=== PATIENT | male | born 1980 | race Caucasian/White ===

== ENCOUNTER 2020-12-15 12:27 | Outpatient (CLI) | payer BC, SELFPAY ==
--- NOTE | ~2020-12-15 | XR_ITS ---
EXAMINATION: XR lg joint inject/asp add, XR lg joint inject/asp w image DATE: 12/15/2020 13:47 (accession [id number]), 12/15/2020 13:46 (accession [id number]) INDICATION: Bilateral hip osteoarthritis presenting with bilateral hip pain. TECHNIQUE: A time-out was performed to verify the patient's name, date of , and procedure to b e performed. The procedure including the risks, benefits, and alternatives was discussed with the pat ient. Risks discussed included bleeding and infection. The patient understood the risks and agreed to proceed. Attention was first turned to the right hip. The skin overlying the right hip joint was pre pped and draped in usual sterile fashion. Anesthetic was administered with 1% lidocaine subcutaneous ly. A 22 G needle was advanced under fluoroscopic guidance into the joint. Injection of 1 mL of Omn ipaque 240 confirmed intra-articular position of the needle. Subsequently, injectate consisting of 3 mm of a 2:1 mixture of 0.5% bupivacaine, 80 mg/mL Depo-Medrol for a total dose of 80 mg Depo-Medrol was instilled. Washout of contrast was seen confirming intra-articular administration. The needle was removed and the entry site was cleaned and dressed. Attention was then turned to the left hip joint. The skin overlying the left hip joint was prepped an d draped in usual sterile fashion. Anesthetic was administered with 1% lidocaine subcutaneously. A 22 G needle was advanced under fluoroscopic guidance into the joint. Injection of 1 mL of Omnipaque 240 confirmed intra-articular position of the needle. Subsequently, injectate consisting of 3 mm of a 2:1 mixture of 0.5% bupivacaine, 80 mg/mL Depo-Medrol for a total dose of 80 mg Depo-Medrol was ins tilled. Washout of contrast was seen confirming intra-articular administration. The needle was remove d and the entry site was cleaned and dressed. There were no immediate complications. Fluoroscopy ex posure time for the combined procedure was 0.1 minutes. Total DAP was 0.792 mGycm^2 . The total numbe r of images was 3. FINDINGS: Real-time fluoroscopy demonstrates the needle and contrast in the right hip joint and subse quently in the left hip joint. Patient's pain prior to procedure:10/10. Patient's pain following the procedure: 10/07. IMPRESSION: 1. Successful left hip joint injection of local anesthetic and steroid with decrease in the patient's presenting pain. 2. Successful right hip joint injection of local anesthetic and steroid with decrease in the patient' s presenting pain. Reviewed, dictated and finalized at location A. IMPRESSION: 1. Successful left hip joint injection of local anesthetic and steroid with dec rease in the patient's presenting pain. 2. Successful right hip joint injection of local anesthetic and steroid with de crease in the patient's presenting pain.
== END 2020-12-15 12:28 | disposition home or self-care (01) ==
LOC: ANHIMG 12:38
PROVIDERS: PCP Internal Medicine; Visit Provider Nurse Practitioner Family
DX: M16.0 Bilateral primary osteoarthritis of hip (principal)
CPT/HCPCS: 20610; 77002; J1040; Q9966

== ENCOUNTER 2024-02-10 13:35 | Outpatient (CLI) | payer OTHER, SELFPAY ==
--- NOTE | 2024-02-10 14:01 | ECG_ITS ---
Test Date: 2024-02-10 14:08:35 Measurements Intervals [place] Rate: 60 P: 0 MD: 146 QRS: 3 QRSD: 104 T: 11 QT: 408 QTc: 409 Interpretive Statements SINUS RHYTHM No previous ECG available for comparison Electronically Signed On 02-10-2024 14:42:37 CDT by David Vallejo M.D.
[2024-02-10 14:10] LABS: Basophils Percent Auto 0.5 % (0.2-1.2); Eosinophils Absolute Auto 0.4 K/mm3 (0-0.3); Eosinophils Percent Auto 6.1 % (0-4.4); Hematocrit 45.9 % (42.0-52.0); Hemoglobin 15.9 g/dL (14.0-18.0); Immature Granulocyte Absolute 0.06 K/mm3 (0.00-0.031); Lymphocytes Absolute Auto 1.13 K/mm3 (0.9-3.2); Lymphocytes Percent Auto 19.6 % (18.3-44.2); Mean Corpuscular HGB Conc 34.6 g/dl (32-36); Mean Corpuscular Hemoglobin 29.2 pg (26-34); Mean Corpuscular Volume 84.2 fl (80-100); Monocytes Absolute Auto 0.6 K/mm3 (0.1-0.6); Monocytes Percent Auto 9.9 % (2.6-8.5); Neutrophils Absolute Auto 3.6 K/mm3 (1.3-6.7); Neutrophils Percent Auto 62.9 % (45.5-73.1); Platelet Count Result 150 k/mm3 (150-375); Red Blood Count 5.45 M/mm3 (4.6-6.20); Red Cell Distribution Width 13.3 % (11.5-14.5); White Blood Count 5.8 K/mm3 (4.5-10.0)
[2024-02-10 14:14] LABS: Add Urine Microscopic? NO; Appearance Urine Clear (Clear); Bilirubin Urine Negative (Negative); Blood Urine Negative (Negative); Color Urine Yellow (Yellow); Glucose Urine UA Negative (Negative); Ketones Urine Negative (Negative); Leukocyte Esterase Ur Negative LEU/UL (Negative); Nitrate Urine Negative (Negative); Protein Urine Negative (Negative); Specific Grav Ur 1.026 (1.001-1.035); Urobilinogen Urine 0.2 mg/dL (<2.0); pH Urine 5.5 (5.0-9.0)
[2024-02-10 14:28] LABS: Anion Gap 9 mmol/L (4-12); Blood Urea Nitrogen 20 mg/dL (9-20); Calcium 8.7 mg/dL (8.4-10.2); Carbon Dioxide 29 mmol/L (22-30); Chloride 101 mmol/L (98-107); Estimated Glomerular Filt Rate > 60; Glucose 99 mg/dL (65-110); Potassium 3.8 mmol/L (3.4-5.0); Sodium 139 mmol/L (137-145)
== END 2024-02-10 13:36 | disposition home or self-care (01) ==
PROVIDERS: PCP Internal Medicine; Visit Provider Orthopaedic Surgery
DX: R53.83 Other fatigue (principal); M16.12 Unilateral primary osteoarthritis, left hip
CPT/HCPCS: 36415; 80048; 81003; 85025; 93005

== ENCOUNTER 2024-02-17 13:53 | Outpatient (CLI) | payer OTHER, SELFPAY ==
[2024-02-17 15:53] LABS: Prothrombin Time 13.3 Seconds (11.1-14.7)
[2024-02-17 15:54] LABS: Partial Thromboplastin Time 26.4 Seconds (22.3-36.8)
[2024-02-17 16:27] LABS: Urine Cotinine NEGATIVE
[2024-02-17 16:42] LABS: Albumin Level 4.3 g/dL (3.5-5.1)
[2024-02-17 16:53] LABS: MRSA (PCR) NOT DETECTED (NOT DETECTE)
[2024-02-17 17:00] LABS: Hemoglobin A1C 5.4 % (<5.7)
== END 2024-02-17 13:54 | disposition home or self-care (01) ==
PROVIDERS: PCP Internal Medicine; Visit Provider Orthopaedic Surgery
DX: M16.12 Unilateral primary osteoarthritis, left hip (principal); Z01.818 Encounter for other preprocedural examination
CPT/HCPCS: 80307; 82040; 83036; 85610; 85730; 87641

== ENCOUNTER 2024-03-03 01:33 | Day surgery (SDC) | payer OTHER, SELFPAY ==
--- NOTE | 2024-02-17 14:14 | PC.NURSE ---
Report to the Outpatient Waiting Room, entrance under the green pavilion located off [facility], at time __6:00AM on date ___03/03/24____. Planned Procedure Time: ___7:30AM . Time changes happen often and if your time is changed the preop area will call you the afternoon before. - You and your visitor will be asked to self-screen and do not enter if you have any COVID symptoms. - A mask is optional within the hospital at this time. Patients may have clear liquids (water, carbonated beverages, clear teas, apple juice) until 3 hours prior to surgery with a maximum of 20 ounces. - No food from midnight until time of surgery. Take the following medications with a SIP of water the morning of surgery: ____NONE DO NOT STOP ANY OF YOUR OTHER PRESCRIPTION MEDICATIONS PRIOR TO SURGERY ?EXCEPT THE FOLLOWING Medications to discontinue per physician ____HOLD MELOXICAM PER DR VELAZQUEZ Date to take last dose Please no make-up, nail telugu, hairspray, perfume, deodorant, or body powder the day of surgery. No jewelry (including any body piercings) or valuables the day of surgery, leave them at home. Please take a shower or bath the night before, or the morning of, surgery with an antibacterial soap. Wear comfortable, loose fitting clothing. - Jewelry must be removed prior to entering the operating room. Rings and piercings that are not removed may be cut off. - The hospital will not accept responsibility for valuables. - Please leave all valuables, including medications, at home the day of surgery. If you are going home after surgery, a licensed tow motor driver must drive you home. - NO public transportation without another adult if you receive anesthesia. - We recommend that an adult stay with you for 24 hours following discharge. - We also recommend that you do not drive, make important decision, drink alcoholic beverages, or take any drugs that were not prescribed by your health care provider for at least 24 hours after your discharge time. Follow any additional instructions given to you from your surgeon. If you or anyone in your household have experienced Covid symptoms in the past week, please notify your surgeon or the nurse liaison at the phone number below for possible testing. Telephone instructions given to ____PATIENT and asked if any additional questions and then verbalized understanding. Patient advised to call surgeon office or pre surgery nurse liaison [phone] if any additional questions.
[2024-02-17 14:21] VITALS: BP 141/88; PULSE 78; RESP 16; TEMP 36.7; O2SAT 95; BMI 33.0
[2024-03-03] VITALS (13 sets, daily range): BP systolic 106–151; BP diastolic 67–99; PULSE 70–83; RESP 10–20; TEMP 36.1–36.6; O2SAT 92–100; BMI 32.1
--- NOTE | ~2024-03-03 | XR_ITS ---
EXAMINATION: XR hip LT 1V DATE: 03/03/2024 11:54 INDICATION: Status post left hip arthroplasty TECHNIQUE: AP portable view of the left hip FINDINGS: There is a left total hip arthroplasty in expected position. Subcutaneous gas with soft ti ssue swelling are consistent with recent surgery. IMPRESSION: 1. Recent left total hip arthroplasty. Reviewed, dictated and finalized at location B.
[2024-03-03] MEDS: ACETAMINOPHEN 500 MG TABLET 1000 MG PO (06:34)
--- NOTE | 2024-03-03 06:46 | P.PNAN_ITS ---
Anes - Initial Pre Proc Eval Procedure: Operation Date: 03/03/24 07:30 Proposed Procedures p Left Total Hip Arthroplasty - Manpreet Rhodes MD Date/Time: 03/03/24 06:46 Surgeon: Manpreet Rhodes MD Pre Op Diagnosis: Left Hip osteoarthritis Patient Data Age: 43 Gender: M Height: 1.73 m Weight: 98.4 kg Last Vital Signs Temp 36.7 C 02/17/24 14:21 Pulse 78 02/17/24 14:21 Resp 16 02/17/24 14:21 BP 141/88 H 02/17/24 14:21 Pulse Ox 95 02/17/24 14:21 O2 Del Method Room Air 02/17/24 14:21 Allergies Allergy/AdvReac Type Severity Reaction Status Date / Time No Known Allergies Allergy Verified 03/03/24 06:39 Home Medications Medication Instructions Recorded Confirmed Type meloxicam 15 mg tablet 15 mg PO DAILY 11/30/20 02/17/24 History methocarbamol 500 mg tablet 500 mg PO HS 02/17/24 02/17/24 History chlorhexidine gluconate 4 % 1 applic topical ONCE #237 mL 02/18/24 03/03/24 Rx topical liquid (Hibiclens) Patient hx anesthesia problems: none Family hx anesthesia problems: none Results Review: All pre-operative results and documents have been reviewed as part of the pre- operative evaluation. 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 Surgical History Surgical History History of bunionectomy Family History Family History Other Carcinoma of colon Cerebrovascular accident Depression Heart disease Hypertension Social History Social History Smoking status: Never smoker Alcohol intake: current Drinks per week: 2 Alcohol use details: 3 per month Substance use: current Substance use type: marijuana Other substance usage details: MARIJUANA GUMMIES Living arrangements: alone Gender identity (if verbalized by the patient): Male Spiritual care concerns: No Anes - Eval Final PreProcedure Day of Procedure 03/03/24 06:46 Patient weight: obese Heart: regular rate and rhythm Lungs: clear to auscultation Airway: Mallampati scale class II Neurological: alert and oriented Last oral intake: >/= 8 hours ASA classification: II Emergent: no Anesthetic plan: proceed Anesthesia type and monitoring: general ETT and standard monitoring Results Review: All pre-operative results and documents have been reviewed as part of the pre- operative evaluation. Informed Consent: The patient's anesthetic plan and its attendant risks and benefits were discussed with the patient/family/POA. Questions were solicited and answers provided to the satisfaction of the patient/family/POA.
[2024-03-03] MEDS: TRANEXAMIC ACID 1,000MG/ISO100 1,000 MG/100 ML BAG 200 MG IVPB (07:00)
[2024-03-03] MEDS: LACTATED RINGERS 1,000 ML 30 ML IV CONT ×2 (07:17→11:23)
--- NOTE | 2024-03-03 07:19 | WPDHPUPDATE1 ---
History and Physical Update Update Date/Time: 03/03/24 07:19 History and Physical has been reviewed, including an updated exam of the patient. There are NO changes in the patient's condition. Risks, benefits, and alternatives have been discussed and questions answered. Patient agrees to proceed with procedure.
[2024-03-03] MEDS: ceFAZolin 2 GM/D5W 50 ML 2 GM/50 ML BAG IVPB ×2 (07:41→17:40)
[2024-03-03] MEDS: SODIUM CHLORIDE 0.9% IV 37.7 ML, MORPHINE SULFATE INJ (*CRX) 2 MG, ROPivacaine HCL 1% 2... INFILTRATE (08:43)
[2024-03-03] MEDS: TRANEXAMIC ACID 1,000 MG/10 ML AMPUL 1000 MG IV PUSH (10:17)
--- NOTE | 2024-03-03 11:54 | W.PM.PROC2 ---
Procedure Note - Detailed Date of Procedure 03/03/24 Pre-op Diagnosis Left Hip osteoarthritis Post-op Diagnosis Same Procedure Performed L ABDI Surgeon Manpreet Rhodes MD Anesthesia General Description of Procedure THE PATIENT WAS TAKEN TO THE OPERATING ROOM IN STABLE CONDITION AND WAS PLACED IN THE LATERAL DECUBITUS AND THE LEFT LOWER EXTREMITY WAS PREPPED AND DRAPED IN THE STERILE FASHION. INCISION WAS MADE IN THE POSTERIOR LATERAL SIDE OF THE HIP, DOWN TO THE FASCIA LAYER. THE FASCIA WAS INCISED. THE HIP WAS EXPOSED. THE SHORT EXTERNAL ROTATORS WERE EXPOSED. THE SCIATIC NERVE WAS IDENTIFIED. INCISION WAS MADE THROUGH THE SHORT EXTERNAL ROTATORS AND THE CAPSULE OF THE HIP JOINT. THE HIP WAS DISLOCATED. AN OSTEOTOMY WAS MADE TO THE FEMORAL NECK ABOUT 1 CM PROXIMAL TO THE LESSER TROCHANTER. THE ACETABULUM WAS EXPOSED. THERE WAS SEVERE DJD SEEN. BEGINNING WITH A 44 REAMER THE ACETABULUM WAS REAMED TO 53 MM. A 53 MM TRIAL WAS PLACED IN 35 DEG OF ABDUCTION AND ANTEVERSION WAS IN ALIGNMENT WITH THE TRANS ACETABULAR LIGAMENT. THE FIT WAS EXCELLENT. THE TRIAL WAS REMOVED. A 50 MM BIOMET G7 COMPONENT WAS THEN TAPPED IN TO PLACE IN 35 DEG OF ABDUCTION AND ANTEVERSION IN ALIGNMENT WITH THE TRANSVERSE ACETABULAR LIGAMENT. THE FIT WAS EXCELLENT. THE ACETABULAR LINER WAS PLACED AND CHECKED FOR STABILITY. NEXT THE FEMUR WAS PREPARED WITH INITIAL CANAL FINDER THEN SEQUENTIAL BROACHING WITH A TAPERLOC HIP SYSTEM, UNTIL AN 11 BROACH FIT WELL IN 15 OF ANTEVERSION. A 0 HIGH OFFSET NECK WITH 36 MM HEAD TRIAL WAS PLACED. THE SHUCK TEST WAS EXCELLENT AND THE STABILITY IN FLEXION AND ROTATION WAS EXCELLENT. LEG LENGTHS WERE GROSSLY EQUAL. TRIALS WERE REMOVED. A BIOMET TAPERLOC 11 STEM WAS PLACED WITH A HIGH OFFSET NECK THE FIT WAS EXCELLENT IN 15 DEG OF ANTEVERSION. A 0 CERAMIC 36 MM FEMORAL CERAMIC HEAD WAS PLACED. THE HIP WAS TRIALED AND THE STABILITY WAS EXCELLENT WERE THE LEG LENGTHS AND THE SHUCK TEST. THE WOUND WAS IRRIGATED WITH STERILE BETADINE AND WATER FOR 3 MIN. THEN WASHED AGAIN. THE CAPSULE AND THE EXTERNAL ROTATORS WERE APPROXIMATED WITH NUMBER 1 VICRYL. THE FASCIA WITH No 2 QUIL AND THE SUB CUTANEOUS LAYER WITH 2-0 ABSORBABLE SUTURE WITH A RUNNING 3-0 SUBCUTICULAR LAYER WELL. DERMABOND WAS PLACED AND STERILE DRESSING WAS APPLIED. PATIENT WAS PLACED BACK ON TO THE SUPINE POSITION AND WAS EXTUBATED Estimated Blood Loss 100 Complications No immediate complications Condition Stable Disposition PACU
[2024-03-03] MEDS: fentaNYL CITRATE INJ (*CRX) 100 MCG/2 ML VIAL 25 MCG IV PUSH ×2 (12:00→12:17)
--- NOTE | 2024-03-03 12:30 | PC.NURSE ---
This patient, Ron Gillespie Jr., was admitted to [facility] Surg Room 302-01. Patient/family oriented to hospital policies and general routines including ID bracelet, bed and alarms, visiting hours, pain management, procedures, bathroom and other care routines, personal items, smoking policy, room service/diet, and visiting hours. Information on how to activate the Rapid Response Team has been discussed. Patient/Family are encouraged to report perceived risks to care and to ask questions if they do not understand what they are told or what they should do.
[2024-03-03] MEDS: KETOROLAC 15 MG/ML VIAL (*BKC) IV PUSH ×2 (13:23→17:41)
[2024-03-03] MEDS: SENNA/DOCUSATE SODIUM TABLET 2 TAB PO ×2 (14:02→17:41)
[2024-03-03] MEDS: FAMOTIDINE 20 MG TABLET PO ×2 (14:03→20:19)
[2024-03-03] MEDS: polyethylene glycoL 3350 17 GM POWD.PACK PO (14:03)
[2024-03-03] MEDS: ASPIRIN 325 MG ENTERIC TABLET PO ×2 (14:03→20:19)
[2024-03-03] MEDS: oxyCODONE/ACETAMINOPHEN (*CRX) 10-325 MG TABLET 1 TAB PO ×2 (14:51→20:20)
[2024-03-04 00:12] VITALS: BP 108/62; PULSE 76; RESP 20; TEMP 36.2; O2SAT 97
[2024-03-04] MEDS: KETOROLAC 15 MG/ML VIAL (*BKC) IV PUSH ×3 (00:23→11:06)
[2024-03-04] MEDS: ceFAZolin 2 GM/D5W 50 ML 2 GM/50 ML BAG IVPB ×2 (00:23→08:38)
[2024-03-04] MEDS: oxyCODONE/ACETAMINOPHEN (*CRX) 5-325 MG TABLET 1 TABLET PO (05:17)
[2024-03-04 05:53] VITALS: BP 114/66; PULSE 74; RESP 20; TEMP 36.4; O2SAT 98
[2024-03-04 06:54] LABS: Basophils Percent Auto 0.2 % (0.2-1.2); Eosinophils Percent Auto 0.2 % (0-4.4); Hemoglobin 12.7 g/dL (14.0-18.0); Immature Granulocyte Absolute 0.02 K/mm3 (0.00-0.031); Immature Granulocyte Percent A 0.2 % (0-0.5); Lymphocytes Absolute Auto 1.07 K/mm3 (0.9-3.2); Mean Corpuscular HGB Conc 33.4 g/dl (32-36); Mean Corpuscular Volume 86.8 fl (80-100); Mean Platelet Volume 9.6 fl (7.4-10.4); Monocytes Absolute Auto 0.9 K/mm3 (0.1-0.6); Monocytes Percent Auto 10.9 % (2.6-8.5); Neutrophils Absolute Auto 6.2 K/mm3 (1.3-6.7); Neutrophils Percent Auto 75.5 % (45.5-73.1); Platelet Count Result 144 k/mm3 (150-375); Red Blood Count 4.38 M/mm3 (4.6-6.20); Red Cell Distribution Width 13.6 % (11.5-14.5); White Blood Count 8.3 K/mm3 (4.5-10.0)
[2024-03-04 07:05] LABS: Anion Gap 6 mmol/L (4-12); Blood Urea Nitrogen 19 mg/dL (9-20); Calcium 8.3 mg/dL (8.4-10.2); Carbon Dioxide 32 mmol/L (22-30); Chloride 98 mmol/L (98-107); Estimated CRCL calculation 85 ml/min; Estimated Glomerular Filt Rate > 60; Glucose 113 mg/dL (65-110); Potassium 3.8 mmol/L (3.4-5.0); Sodium 136 mmol/L (137-145)
[2024-03-04] MEDS: SENNA/DOCUSATE SODIUM TABLET 2 TAB PO (08:39)
[2024-03-04] MEDS: polyethylene glycoL 3350 17 GM POWD.PACK PO (08:40)
[2024-03-04] MEDS: ASPIRIN 325 MG ENTERIC TABLET PO (08:40)
[2024-03-04] MEDS: FAMOTIDINE 20 MG TABLET PO (08:40)
--- NOTE | 2024-03-04 09:06 | WPDANESPN ---
Anes - Prog Note Post-Op Date/Time: 03/04/24 09:06 Cardiovascular status: normal Respiratory status: normal Airway patency: baseline Mental status: baseline Post-Op hydration status: normal Vital Signs: Last Vital Signs Temp 97.6 F 03/04/24 05:53 Pulse 74 03/04/24 05:53 Resp 20 03/04/24 05:53 BP 114/66 03/04/24 05:53 Pulse Ox 98 03/04/24 05:53 O2 Del Method Room Air 03/03/24 20:00 O2 Flow Rate 3 03/03/24 12:15 Pain Score (VAS): 0/10 I/O: Intake & Output 03/03/24 03/04/24 03/04/24 23:59 07:59 15:59 Intake Total 50 50 Balance 50 50 Laboratory Tests 03/04/24 06:25 03/04/24 06:25 03/04/24 06:25 WBC 8.3 RBC 4.38 L Hgb 12.7 L D Hct 38.0 L MCV 86.8 MCH 29.0 MCHC 33.4 RDW 13.6 Plt Count 144 L MPV 9.6 Immature Gran % (Auto) 0.2 Neut % (Auto) 75.5 H Lymph % (Auto) 13.0 L [place] % (Auto) 10.9 H Eos % (Auto) 0.2 Baso % (Auto) 0.2 Lymph # (Auto) 1.07 [place] # (Auto) 0.9 H Eos # (Auto) 0.0 Baso # (Auto) 0.0 Abs Immat Gran (auto) 0.02 Absolute Neuts (auto) 6.2 Absolute Nucleated RBC 0.000 Nucleated RBC % 0.0 Sodium 136 L Potassium 3.8 Chloride 98 Carbon Dioxide 32 H Anion Gap 6 BUN 19 Creatinine 1.10 Estim Creat Clear Calc 85 Estimated GFR > 60 Glucose 113 H Calcium 8.3 L Post-procedural complaints: none Patient Feedback: Patient satisfied with anesthetic care.
[2024-03-04 10:04] VITALS: O2SAT 98
[2024-03-04 10:10] VITALS: BP 140/79; PULSE 86; RESP 20; TEMP 36.6; O2SAT 94
--- NOTE | 2024-03-04 11:41 | PM.PNORT ---
Progress Note: A&P Assessment and Plan (1) S/P total hip arthroplasty: Qualifiers: Laterality: left Qualified Code(s): Z96.642 - Presence of left artificial hip joint Code(s): Z96.649 - Presence of unspecified artificial hip joint Status: Acute Assessment and Plan: POD #1 : Left ABDI Continue PT/OT. WBAT. Walker. HIGH FALL RISK. Continue pain control. Ice Hip. Protect skin. DVT prophylaxis with Aspirin. SCDs. Incentive Spirometry Use reviewed. Monitor Dressing. Change prior to discharge. Bowel Regimen. Dispo: Home with Home Health pending progress with PT/OT Plan Reviewed history, exam, radiographs and current labs with attending MD and covering surgeon, Dr. Rhodes, who agrees with current plan as indicated above. No further recommendations from Dr. Rhodes at this time. Subjective Subjective Date/Time Seen: 03/04/24 11:41 Post Op day: 1 Interval history: POD #1: Left ABDI Review of Systems Constitutional: Constitutional: Denies chills, Denies fatigue, Denies fever(s), Denies night sweats and Denies weakness Cardiovascular: Cardiovascular: Denies chest pain, Denies lightheadedness, Denies palpitations and Denies dyspnea Respiratory: Respiratory: Denies cough, Denies dyspnea and Denies wheezing Gastrointestinal: Gastrointestinal: Denies abdominal pain, Denies diarrhea, Denies nausea and Denies vomiting Musculoskeletal: Musculoskeletal: Reports arthralgias (left hip ), Reports joint swelling (left hip ) and Denies numbness Neurologic: Denies numbness and Denies weakness Endocrine: Endocrine: Denies fatigue and Denies palpitations Allergic/Immunologic: Allergic/Immunologic: Denies wheezing Exam Const: General: comfortable and no acute distress Orientation/consciousness: patient oriented x3 Limitations: no limitations Resp: Effort & Inspection: normal respiratory effort Cardio: Rate: regular rate Rhythm: regular rhythm GI: Inspection: non-distended Skin: General skin exam: normal color and wounds noted (incision left hip C/D/I ) Wounds: wounds noted (incision left hip C/D/I ) Neuro: General: patient oriented x3 Extrem: Left lower extremity: hip/thigh Details: tenderness Location: of the hip Location: laterally and anteriorly, swelling (thigh soft ) Location: of the hip (lateral. ), abnormal ROM (limitations with internal/external rotation and flexion/extension due to recent surgical intervention ) and other (incision lateral hip c/d/i. ), knee Details: normal to inspection and normal ROM; no tenderness and no swelling, lower leg (Negative Vianey's Sign ) Details: no edema, ankle (+ankle dorsiflexion/plantarflexion ) Details: normal to inspection, no edema and normal ROM; no tenderness, no swelling and no warmth and foot Details: normal capillary refill, toes with normal ROM, vascular exam Details: dorsalis pedis pulse present and motor-sensory exam light-touch normal in all toes; no tenderness, no ecchymosis and no crepitus Psych: Mental Status: mental status grossly normal Affect: normal affect Objective Data Vital Signs Vital Signs: Vital Signs - 24 hr 03/03/24 11:45 03/03/24 12:00 03/03/24 12:05 Temperature Pulse Rate 83 79 Respiratory Rate 12 12 Blood Pressure 132/92 H 140/99 H Pulse Oximetry 96 96 94 Oxygen Delivery Room Air Room Air Nasal Cannula Oxygen Flow Rate 3 03/03/24 12:15 03/03/24 12:40 03/03/24 12:55 Temperature 36.6 C 36.3 C L Pulse Rate 78 70 77 Respiratory Rate 16 18 18 Blood Pressure 151/85 H 135/86 140/89 Pulse Oximetry 99 99 100 Oxygen Delivery Nasal Cannula Oxygen Flow Rate 3 03/03/24 13:25 03/03/24 14:25 03/03/24 14:37 Temperature 36.2 C L 36.3 C L Pulse Rate 75 70 Respiratory Rate 18 18 Blood Pressure 125/92 H 106/81 Pulse Oximetry 92 95 Oxygen Delivery Room Air Oxygen Flow Rate 03/03/24 18:10 03/03/24 20:16 03/03/24 20:00 Temperature 36.6 C 36.1 C L Pulse Rate 79 82 Respiratory Rat
--- NOTE | 2024-03-04 11:42 | PM.DS ---
DS: Admitting Diagnosis Discharge Date 03/04/2024 Admitting Diagnosis Left Hip DJD DS: Discharge Diagnosis Discharge Diagnosis (1) S/P total hip arthroplasty: Qualifiers: Laterality: left Qualified Code(s): Z96.642 - Presence of left artificial hip joint Code(s): Z96.649 - Presence of unspecified artificial hip joint Status: Acute Assessment and Plan: POD #1 : Left ABDI Continue PT/OT. WBAT. Walker. HIGH FALL RISK. Continue pain control. Ice Hip. Protect skin. DVT prophylaxis with Aspirin. SCDs. Incentive Spirometry Use reviewed. Monitor Dressing. Change prior to discharge. Bowel Regimen. Dispo: Home with Home Health pending progress with PT/OT DS: Summary Hospital Course Reason for hospitalization: Left ABDI Hospital Course: 43 year old male admitted s/p Left ABDI for postoperative medical management, pain control and mobilization with PT/OT. Patient progressed well with PT/OT. Pain and vitals remained stable throughout. The patient has been cleared to be discharged home with home health at this time. All discharge care instructions reviewed at depth. New medications reviewed. Follow up planned for 3 weeks in the outpatient orthopedic clinic with Dr. Rhodes. Dr. Rhodes in agreement with safe discharge at this time. Status at Discharge Functional status at discharge: uses cane/walker Overall status at discharge: patient is progressing back to baseline Time Spent with Patient Time attestation: Total time spent providing and/or coordinating discharge services: Time spent: Less than 30 minutes Exam Const: General: comfortable and no acute distress Orientation/consciousness: patient oriented x3 Limitations: no limitations Resp: Effort & Inspection: normal respiratory effort Cardio: Rate: regular rate Rhythm: regular rhythm GI: Inspection: non-distended Skin: General skin exam: normal color and wounds noted (incision left hip C/D/I ) Wounds: wounds noted (incision left hip C/D/I ) Neuro: General: patient oriented x3 Extrem: Left lower extremity: hip/thigh Details: tenderness Location: of the hip Location: laterally and anteriorly, swelling (thigh soft ) Location: of the hip (lateral. ), abnormal ROM (limitations with internal/external rotation and flexion/extension due to recent surgical intervention ) and other (incision lateral hip c/d/i. ), knee Details: normal to inspection and normal ROM; no tenderness and no swelling, lower leg (Negative Vianey's Sign ) Details: no edema, ankle (+ankle dorsiflexion/plantarflexion ) Details: normal to inspection, no edema and normal ROM; no tenderness, no swelling and no warmth and foot Details: normal capillary refill, toes with normal ROM, vascular exam Details: dorsalis pedis pulse present and motor-sensory exam light-touch normal in all toes; no tenderness, no ecchymosis and no crepitus Psych: Mental Status: mental status grossly normal Affect: normal affect DS: Data Data Completed and Pending Labs on day of discharge: Labs from last 24 hours 03/04/24 06:25 WBC 8.3 RBC 4.38 L Hgb 12.7 L D Hct 38.0 L MCV 86.8 MCH 29.0 MCHC 33.4 RDW 13.6 Plt Count 144 L MPV 9.6 Immature Gran % (Auto) 0.2 Neut % (Auto) 75.5 H Lymph % (Auto) 13.0 L [place] % (Auto) 10.9 H Eos % (Auto) 0.2 Baso % (Auto) 0.2 Lymph # (Auto) 1.07 [place] # (Auto) 0.9 H Eos # (Auto) 0.0 Baso # (Auto) 0.0 Abs Immat Gran (auto) 0.02 Absolute Neuts (auto) 6.2 Absolute Nucleated RBC 0.000 Nucleated RBC % 0.0 Sodium 136 L Potassium 3.8 Chloride 98 Carbon Dioxide 32 H Anion Gap 6 BUN 19 Creatinine 1.10 Estim Creat Clear Calc 85 Estimated GFR > 60 Glucose 113 H Calcium 8.3 L Discharge Plan Discharge Patient Disposition: Home Health Service Discharge Instructions: Per Care Coordination: [facility] ([phone]) will call to set up initial visit. RN please fax discharge paperwork to [phone]
== END 2024-03-04 12:40 | disposition home health service (06) ==
LOC: ANHSURGERY 05:50 → ANH3MEDSUR 12:28
PROVIDERS: PCP Internal Medicine; Visit Provider Orthopaedic Surgery
PROC: (CPT 27130; principal; 2024-03-03 07:30)
DX: M16.12 Unilateral primary osteoarthritis, left hip (principal); E66.9 Obesity, unspecified; Z68.32 Body mass index [BMI] 32.0-32.9, adult; Z98.890 Other specified postprocedural states; Z80.0 Family history of malignant neoplasm of digestive organs; Z82.49 Family history of ischemic heart disease and other diseases of the circulatory system
CPT/HCPCS: 27130; 36415; 73501; 80048; 80307; 82040; 83036; 85025; 85610; 85730; 86850; 86900; 86901; 87641; 97110; 97116; 97161; 97165; 97530; 97535; A9270; C1713; C1776; J0171; J0690; J1100; J1170; J1885; J2250; J2270; J2405; J2704; J2795; J3010; J7120

== ENCOUNTER 2025-05-20 14:15 | Outpatient (CLI) | payer OTHER, SELFPAY ==
--- OUTSIDE RECORDS SUMMARY | 2025-05-20 14:19 | XMS_ITS | Clinical Summary ---
Author Organization [facility] Address [address] [place] [id number] Care Team Providers Care Practice Specialist Name Role Phone Sony Han MD Primary Care Provider [phone] Social History Tobacco Use Types Packs/Day Years Used Date Smoking Tobacco: Never Assessed Sex and Gender Information Value Date Recorded Sex Assigned at Not on file Legal Sex Male 7:17 PM CDT Gender Identity Not on file Sexual Orientation Not on file Plan of Treatment Health Maintenance Due Date Last Done Comments Colorectal Cancer Screening Colonoscopy (10 Years) 1978 Annual Physical 1981 Hepatitis C 1996 DTaP, Tdap and Td Vaccines ( 1 - Tdap) 1997 Hepatitis B Vaccines (1 of 3 - 19+ 3-dose series) 1997 COVID-19 Vaccine (2024-2 6 season) 2025 Influenza Adult (#1) 2025 Hepatitis A Vaccines Aged Out No long er eligible based on patient's age to complete this topic Meningococcal B Vaccine Aged Out No l onger eligible based on patient's age to complete this topic Meningococcal Vaccine Aged Out No eren jenny eligible based on patient's age to complete this topic Pneumococcal Vaccine: Pediat rics (0 to 5 Years) and At-Risk Patients (6 to 49 Years) Aged Out No longer eligible b ased on patient's age to complete this topic RSV Immunizations Under 20 Months Aged Out No longer eligible based on patient's age to complete this topic Care Teams Practice Specialist Relationship Specialty Start Date End Date Sony Han MD [employer] [address] [place] [id number] PCP - General 03/29/13
--- OUTSIDE RECORDS SUMMARY | 2025-05-20 14:19 | XMS_ITS | Clinical Summary ---
Author Organization [facility] [employer] Address [address] [place] [address] Care Team Providers Care Oil Agent Name Role Phone Najma Ramirez MD Primary Care Provider [phone] Source Comments [facility] [employer],non-owned Affiliates and Associated Physician Practices is amultiple site organization consisting of ambulatory clinics and hospital sitesin [place], [place], [place] and [place]. This disclosure is being madepursuant to the Care Everywhere program and may not contain all information available regarding this patient. Last updated 18.[facility] [employer] Allergies No known active allergies Medications * Be aware that medications may not be up to date on this document. Alwaysverify current medications with the patient. pantoprazole EC (Protonix) 40 MG tablet Take 1 (one) tablet by mouth once daily for 30 days 30 tablet 06/08/2023 Active Active Problems Problem Noted Date Diagnosed Date Esophageal obstruction 06/07/2023 Family History Medical History Relation Name Comments None Known Father None Known Mother Cancer - Colon Sister Relation Name Status Comments Father Mother Sister Social History Tobacco Use Types Packs/Day Years Used Date Smoking Tobacco: Never Smokeless Tobacco: Never Tobacco Cessation:Counseling Given: Not Answered Sex and Gender Information Value Date Recorded Sex Assigned at Male 11/23/2020 8:23 PM CDT Legal Sex Male 11:23 AM CDT Gender Identity Male 11/23/2020 8:23 PM CDT Sexual Orientation Straight 11/23/2020 8: 23 PM CDT Last Filed Vital Signs Vital Sign Reading Time Taken Comments Blood Pressure 131/85 06/08/2023 7:24 AM [employer] Pulse 75 06/08/2023 7:24 AM [employer] Temperature 37.1 C (98.7 F) 06/08/2023 7:24 AM [employer] Respiratory Rate 20 06/08/2023 7:24 AM [employer] Oxygen Saturation 93% 06/08/2023 7:24 AM [employer] Inhaled Oxygen Concentration - - Weight 90.7 kg (200 lb) 06/08/2023 2:16 AM [employer] Height 172.7 cm (5' 8) 06/08/2023 2:16 AM [employer] Body Mass Index 30.41 06/08/2023 2:16 AM [employer] Plan of Treatment Health Maintenance Due Date Last Done Comments COLOGUARD (AGES 45-75) - COLON CA SCREENING 1978 COLON MONITORING 1978 COLONOSCOPY - COLON CA SCREENING 1978 CT COLONOGRAPHY - COLON CA SCREENING 1978 Colorectal Cancer Screening 1978 FIT - COLON CA SCREENING 1978 FLEX SIG - COLON CA SCREENING 1978 LIPID TESTING 1978 HIV SCREENING 1993 HEPATITIS C SCREENING 07/06/1996 DTAP/TDAP/TD VACCINES (1 - Tdap) 1997 HEPATITIS B VACCINE (1 of 3 - 19+ 3-dose series) 1997 DEPRESSION SCREENING 06/30/2024 COVID-19 VACCINE (1 - season) 2025 INFLUENZA VACCINE (#1) 2025 7, 03/30/2014, 03/07/2012, Additional history exists SCREENING FOR DIABETES 06/08/2026 06/08/2023, 2022 ZOSTER VACCINE (1 of 2) 2028 HIB VACCINE Aged Out No longer eligi ble based on patient's age to complete this topic HPV VACCINE Aged Out No longer eligi ble based on patient's age to complete this topic MENINGOCOCCAL (Group B) VACCINE SHARED DECISION-MAKING Aged Out No longer eligible based on patient's age to complete this topic MENINGOCOCCAL GROUPS A/C/Y/W VACCINE Aged Out No longer eligible based on patient's age to complete this topic PNEUMOCOCCAL VACCINE Aged Out No long er eligible based on patient's age to complete this topic Procedures Procedure Name Priority Date/Time Associated Diagnosis Comments BASIC METABOLIC PANEL (CALCIUM TOTAL) STAT 06/08/2023 5:16 AM [employer] Esophageal obstruction from Last 3 Months or Most Recently Relevant to Health Maintenance Results * (ABNORMAL) BASIC METABOLIC PANEL (CALCIUM TOTAL) (06/08/2023 5:16 AM [facility]) Glucose 162(H) 70 - 105 mg/dL 06/08/2023 6:03 AM [facility] Sodium 142 136 - 145 mmol/L 06/08/2023 6:03 AM [facility] Potassium 4.5 3.5 - 5.1 mmol/L 06/08/2023 6:03 AM [facility] Chloride 109(H) 98 - 107 mmol/L 06/08/2023 6:03 AM [facility] CO2 23 22 - 29 mmol/L 06/08/2023 6:03 AM [facility] Calcium 8.9 8.4 - 10.4 mg/dL 06/08/2023 6:03 AM [facility] Anion Gap 10 6 - 16 mmol/L 06/08/2023 6:03 AM [facility] BUN 21(H) 5.3 - 18.7 mg/dL 06/08/2023 6:03 AM [facility] Creatinine 0.87 0.72 - 1.25 mg/dL 06/08/2023 6:03 AM [facility] eGFR by CKD-EPI >90 >=90 mL/min/1.7 3 m2 06/08/2023 6:03 AM [facility] Blood BLOOD SPECIMEN / Unknown Venipuncture / Unknown 06/08/2023 5:16 AM [employer] 06/08/2023 5:20 AM [facility] us Sanju Guthrie MD LAB - CHEMISTRY ORDERA BLES Final Result [facility] [address] [place] [address] from Last 3 Months or Most Recently Relevant to Health Maintenance Insurance [facility] Advance Directives * Full Code (Latest Code Status on File) Date Activated Date Inactivated Comments 06/07/2023 8:58 PM 06/08/2023 12:36 PM Care Teams Oil Agent Relationship Specialty Start Date End Date Najma Ramirez MD [address] [place] [address] PCP - General Internal Medicine 06/09/23
--- OUTSIDE RECORDS SUMMARY | 2025-05-20 14:19 | XMS_ITS | Clinical Summary ---
Author Organization [facility] Address [address] [place] [id number] Care Team Providers Care Contractor [employer] Name Role Phone Najma Ramirez MD Primary Care Provider [phone] Allergies No known active allergies Surgical History Surgery Date Site/Laterality Comments FOOT SURGERY Medical History Medical History Date Comments Patient denies medical problems Social History Tobacco Use Types Packs/Day Years Used Date Smoking Tobacco: Never Smokeless Tobacco: Never Alcohol Use Standard Drinks/Week Comments Yes 0 (1 standard drink = 0.6 oz pur e alcohol) ocassionally Personal Safety Answer Date Recorded Getting School Help Needed Not on file 07/13 Sex and Gender Information Value Date Recorded Sex Assigned at Not on file Legal Sex Male 9:06 PM [employer] Gender Identity Not on file Sexual Orientation Not on file Last Filed Vital Signs Vital Sign Reading Time Taken Comments Blood Pressure 134/92 12/27/2021 11:32 PM CDT Pulse 80 12/27/2021 11:32 PM CDT Temperature 36.7 C (98 F) 12/28/2021 12:00 AM CDT Respiratory Rate 16 12/27/2021 11:32 PM CDT Oxygen Saturation 99% 12/27/2021 11:32 PM CDT Inhaled Oxygen Concentration - - Weight 94.9 kg (209 lb 3.5 oz) 12/27/2021 9:59 P M CDT Height 172.7 cm (5' 7.99) 12/27/2021 9:59 PM CD T Body Mass Index 31.82 12/27/2021 9:59 PM CDT Plan of Treatment Not on file Insurance [place] [id number] Care Teams Contractor [employer] Relationship Specialty Start Date End Date Namja Ramirez MD [address] [place] [address] PCP - General Internal Medicine 12/27/21
[2025-05-20 14:54] LABS: Hematocrit 48.7 % (42.0-52.0); Hemoglobin 16.4 g/dL (14.0-18.0); Mean Corpuscular HGB Conc 33.7 g/dl (32-36); Mean Corpuscular Hemoglobin 28.8 pg (26-34); Mean Corpuscular Volume 85.6 fl (80-100); Platelet Count Result 175 k/mm3 (150-375); Red Blood Count 5.69 M/mm3 (4.6-6.20); White Blood Count 5.6 K/mm3 (4.5-10.0)
[2025-05-20 15:05] LABS: Hemoglobin A1C 5.4 % (<5.7)
[2025-05-20 15:08] LABS: Alanine Aminotransferase 27 U/L (6-50); Albumin Level 4.6 g/dL (3.5-5.1); Alkaline Phosphatase 79 U/L (38-126); Anion Gap 6 mmol/L (4-12); Aspartate Amino Transferase 37 U/L (17-59); Bilirubin,Total 1.0 mg/dL (0.2-1.3); Blood Urea Nitrogen 18 mg/dL (9-20); Calcium 9.3 mg/dL (8.4-10.2); Carbon Dioxide 31 mmol/L (22-30); Chloride 100 mmol/L (98-107); Cholesterol 245 mg/dL (0-200); Estimated Glomerular Filt Rate > 60; Glucose 97 mg/dL (65-110); HDL Direct 40 mg/dL; Potassium 4.2 mmol/L (3.4-5.0); Sodium 137 mmol/L (137-145); Total Protein 7.4 g/dL (6.3-8.2); Triglycerides 144 mg/dL (<150)
[2025-05-21 07:09] LABS: C-Reactive Protein, Cardiac 2.64 mg/L (0.00-3.00)
[2025-06-01 18:08] LABS: Testosterone, Total, LC/MS 380 ng/dL (.)
== END 2025-05-20 14:16 | disposition home or self-care (01) ==
LOC: ANHLAB 14:16
PROVIDERS: PCP Nurse Practitioner Family; Visit Provider Nurse Practitioner Family
DX: Z13.0 Encounter for screening for diseases of the blood and blood-forming organs and certain disorders involving the immune mechanism (principal); E66.811 Obesity, class 1; M16.0 Bilateral primary osteoarthritis of hip; Z13.1 Encounter for screening for diabetes mellitus; Z13.228 Encounter for screening for other metabolic disorders; Z13.220 Encounter for screening for lipoid disorders
CPT/HCPCS: 36415; 80053; 80061; 82172; 83036; 83695; 84403; 85027; 86141